=== PATIENT | male | born 1980 | race American Indian/Alaskan Native ===

== ENCOUNTER 2018-10-14 03:59 | Emergency (ER) | payer OTHER ==
[2018-10-14 04:14] VITALS: TEMP 97.6; O2SAT 100
[2018-10-14] MEDS ORDERED: Naproxen 500 MG TAB PO STA (04:22)
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
[2018-10-14 05:35] VITALS: BP 140/88; PULSE 70; RESP 18
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
== END 2018-10-14 05:43 | disposition home or self-care (01) ==
LOC: H.ER 03:59
DX: S46.912A Strain of unspecified muscle, fascia and tendon at shoulder and upper arm level, left arm, initial encounter (principal); V49.49XA Driver injured in collision with other motor vehicles in traffic accident, initial encounter